=== PATIENT | female | born 1990 | race Caucasian/White ===

== ENCOUNTER 2017-01-31 21:58 | Emergency (ER) | payer OTHER ==
[~2017-01-31] VITALS: Ht 177.8 cm; Wt 90.7 kg
[2017-01-31] MEDS ORDERED: MUCI600T34 PO (22:11)
[2017-01-31] MEDS ORDERED: METO25TA74 PO (22:11)
[2017-01-31] MEDS ORDERED: BENZ100C5 PO (22:11)
[2017-01-31] MEDS ORDERED: CIPROFLOXACIN HC OTIC SUSPENSION AS ONE (23:15)
[2017-01-31] MEDS ORDERED: NAPROXEN 250 MG TAB PO ONE (23:15)
[2017-01-31] MEDS ORDERED: CIPRODEX AS (23:18)
[2017-01-31] MEDS ORDERED: FLON1SPR (23:18)
[2017-01-31 23:32] VITALS: BP 139/93
== END 2017-01-31 23:33 | disposition home or self-care (01) ==
LOC: M ED 22:43
DX: J30.9 Allergic rhinitis, unspecified (principal); H60.92 Unspecified otitis externa, left ear; H60.332 Swimmer's ear, left ear; R00.0 Tachycardia, unspecified; Z79.899 Other long term (current) drug therapy; Z88.2 Allergy status to sulfonamides

== ENCOUNTER 2020-10-27 18:49 | Emergency (ER) | payer OTHER ==
[~2020-10-27] VITALS: Ht 177.8 cm; Wt 84.1 kg
[2020-10-27 18:49] VITALS: BP 127/77
[~2020-10-27 18:49] MED LIST: BENZ-18 PO; CIPR7.5D5 AS; FLON1SPR; METO1TAB32 PO; MUCI600T37 PO
[2020-10-27] MEDS ORDERED: CITA20TA6 (18:55)
[2020-10-27] MEDS ORDERED: CYCL5TAB (18:55)
--- NOTE | 2020-10-27 19:26 | REP ---
INDICATION: foot pain COMPARISON: None. TECHNIQUE: Four views left foot. FINDINGS: There is no evidence of acute fracture, dislocation, or intrinsic bone disease.Small dorsal navicular spur is seen. The joint spaces are unremarkable. IMPRESSION: No fracture or dislocation. Small navicular spur. <Electronically signed by Anshu No > 10/27/201921
[2020-10-27] MEDS ORDERED: NAPR-837 PO (19:46)
--- OUTSIDE RECORDS SUMMARY | 2020-10-27 21:14 | CCD ---
Author Author [facility] Address Unknown Phone Unavailable Support Name Relationship Address Phone UE Next Of Kin Unknown Unavailable BERTIN FOFANA Next Of Kin [id number] [place], [place] [id number] Re-disclosure Warning The records that you are about to access may contain information from federally-assisted alcohol or drug abuse programs. If such information is present, then the following federally mandated warning applies: This information has been disclosed to you from records protected by federal confidentiality rules (42 CFR part 2). The federal rules prohibit you from making any further disclosure of this information unless further disclosure is expressly permitted by the written consent of the person to whom it pertains or as otherwise permitted by 42 CFR part 2. A general authorization for the release of medical or other information is NOT sufficient for this purpose. The Federal rules restrict any use of the information to criminally investigate or prosecute any alcohol or drug abuse patient.The records that you are about to access may contain highly sensitive health information, the redisclosure of which is protected by Article 27-F of the [facility] Public Health law. If you continue you may have access to information: Regarding HIV / AIDS; Provided by facilities licensed or operated by the [facility] Office of Mental Health; or Provided by the [facility] Office for People With Developmental Disabilities. If such information is present, then the following [facility] mandated warning applies: This information has been disclosed to you from confidential records which are protected by state law. State law prohibits you from making any further disclosure of this information without the specific written consent of the person to whom it pertains, or as otherwise permitted by law. Any unauthorized further disclosure in violation of state law may result in a fine or detention sentence or both. A general authorization for the release of medical or other information is NOT sufficient authorization for further disc losure. Insurance Providers Payer name Policy type / Coverage type Policy ID Covered democrat ID Covered democrat's relationship to torres Policy Torres Plan Information ALLI [facility] [id number] [facility] [id number]
== END 2020-10-27 19:54 | disposition home or self-care (01) ==
LOC: M ED 18:49
DX: M72.2 Plantar fascial fibromatosis (principal); Z88.2 Allergy status to sulfonamides; Z88.8 Allergy status to other drugs, medicaments and biological substances